=== PATIENT | female | born 1935 | race Caucasian/White ===

== ENCOUNTER 2016-11-06 11:12 | Outpatient (CLI) | payer MEDICARE, OTHER ==
[2015-12-24 14:19] VITALS: BP 121/71
--- NOTE | 2016-11-06 19:48 | Diagnostic Imaging Report ---
[facility] [address] [facility] [address] [place], [place]. [address] Report Submission Date: Nov 06, 2016 2:33:37 PM CHURCH ADMINISTRATOR Patient Study Name: ALEXANDRO MONROY Date: Nov 06, 2016 11:32:49 AM CHURCH ADMINISTRATOR Modality Type: CR Gender: F Description: CHEST : 37 Institution: [facility] Physician: ANDRES FITZGERALD Chest - two views Clinical history: Cough. Difficulty breathing. Nausea. Fever. Findings: Examination of the chest in PA and lateral views with comparison to examination of 12/24/2015 demonstrates chronic changes in the lungs with fibrotic changes in the apices and bilateral apical fibrocystic changes. There is blunting of the right costophrenic angle and mild blunting left costophrenic angle. Overall aeration of the lungs is improved since the prior examination. The cardiac silhouette is prominent and the aorta is atherosclerotic. Impression: 1. Chronic changes in the lungs with areas of fibrosis and fibrocystic changes in the apices. 2. Cardiomegaly and aortic atherosclerosis. Electronically signed on Nov 06, 2016 2:33:37 PM CHURCH ADMINISTRATOR by: Remington SALDAÑA
== END 2016-11-06 11:13 ==
LOC: RAD 11:12
PROVIDERS: ATTEND Family Medicine
DX: R50.9 Fever, unspecified (principal)
CPT/HCPCS: 71020

== ENCOUNTER 2016-11-09 12:45 | Inpatient (IN) | payer MEDICARE, OTHER ==
[2016-11-09] MEDS ORDERED: IPRATROPIUM/ALBUTEROL SULFATE 3 ML AMPUL.NEB NEB ONE ×2 (13:04)
[2016-11-09] MEDS ORDERED: 0.9 % SODIUM CHLORIDE 1,000 ML IV SCH (13:30)
--- NOTE | 2016-11-09 13:39 | ED Physician Documentation ---
General Adult - HISTORIAN Historian: patient, child (daughter) - HPI Stated Complaint: cough, soa Chief Complaint: General Adult Additional Information: Cough since 11/02/16. Saw Dr. Torres on 11/06, and syas no pneumonia noted on CXR. Usually gets pneumonia every year at about this time. Has felt hot/cold. Some sweats. More tired and SOB today. Says [place] helped her breathing. Uses albuterol, brevana and budesoine nebs at home. Placed on 2 L per NC in ER. Does not use O2 at home. - ROS CONST: fever (feverish), sweating CVS/RESP: shortness of breath - PAST HX Past History: other (lung scarring 2/2 industrial dust exposure?) Surgeries/Procedures: other Allergies/Adverse Reactions: Allergies Allergy/AdvReac Type Severity Reaction Status Date / Time No Known Drug Allergies Allergy Verified 07/10/15 14:11 sulfamethoxazole AdvReac Nausea/Vomi Verified 11/09/16 13:11 [From Bactrim] ting trimethoprim [From Bactrim] AdvReac Nausea/Vomi Verified 11/09/16 13:11 ting Home Medications: Ambulatory Orders Medication Instructions Recorded Loratadine [Claritin] 10 mg PO D 05/24/15 Multivitamin [Tab-A-Dana] 1 each PO DAILY 05/24/15 Polyethylene Glycol 3350 [Miralax] 17 gm PO 1100 05/24/15 Albuterol Sulfate [Ventolin HFN] 2.5 mg NEB Q4 PRN #0 ampul.neb 05/29/15 Arformoterol Tartrate [Brovana] 15 mcg NEB DAILY ampul.neb 05/29/15 Budesonide [Pulmicort] 0.5 mg NEB BID ampul.neb 05/29/15 Acetaminophen [Tylenol Extra 650 mg PO Q4 PRN 12/20/15 Strength] - SOCIAL HX Smoking History: non-smoker - FAMILY HX Family History: No - VITAL SIGNS Vital Signs: Vital Signs Temp Pulse Resp BP Pulse Ox 98.3 F 108 H 26 H 125/76 88 L 11/09/16 13:14 11/09/16 13:14 11/09/16 13:14 11/09/16 13:14 11/09/16 13:14 - REVIEWED ASSESSMENTS Nursing Assessment Reviewed: Yes Vitals Reviewed: Yes Progress - Progress Progress: 2 views the chest Clinical history: Productive cough and difficulty breathing. Findings: Comparisons made to prior study. There has been development of infiltrate in the right midlung and left midlung. There is unchanged blunting of the bilateral costophrenic angles. There are unchanged chronic fibrocystic change bilaterally, greatest in the right lung apex. No pleural effusion or pneumothorax. Impression: Development of superimposed infiltrates in the right midlung and left midlung Electronically signed on Nov 09, 2016 2:45:51 PM GRIND OPERATOR by: [place] [id number], spoke with Dr. Anderson, will admit for IV antibiotics for pneumonia and UTI. ED Results Lab/Radiology - Orders Orders: ED Orders Category Date Time Status Document Bowel Movement Q8H Care 11/09/16 13:[address] Saline Lock/IV Now Care 11/09/16 13:05 Inactive CBC/PLATELET/DIFF Routine Lab 11/09/16 Ordered CMP Routine Lab 11/09/16 Ordered UA [URINALYSIS] Routine Lab 11/09/16 Ordered 0.9 % Sodium Chloride [Normal Saline] 1,000 ml Med 11/09/16 13:30 Discontinued IV Q10H Ipratropium/Albuterol Sulfate [Duoneb] Med 11/09/16 13:04 Discontinued 3 ml NEB .STK-MED ONE Ipratropium/Albuterol Sulfate [Duoneb] Med 11/09/16 13:04 Discontinued 3 ml NEB NOW ONE Oxygen Daily Oxygen 11/09/16 13:15 Ordered General Adult Physical Exam - PHYSICAL EXAM GENERAL APPEARANCE: appears tired. EENT: eye inspection normal, ENT inspection normal, pharynx normal NECK: normal inspection, supple RESPIRATORY: breath sounds normal (but decreased throughout) CVS: reg rate & rhythm, heart sounds normal, no murmur ABDOMEN: soft, normal bowel sounds, no distension RECTAL: deferred BACK: normal inspection, no CVA tenderness SKIN: warm/dry, normal color EXTREMITIES: no evidence of injury NEURO: CN's nml as tested, motor nml, sensation nml, cognition normal Discharge Clincal Impression: Pneumonia Qualifiers: Pneumonia type: due to unspecified organism Laterality: bilateral Lung location : lower lobe of lung Qualified Code(s): J18.9 - Pneumonia, unspecified organism Urinary tract infection Qualifiers: Urinary tract infection type: acute cystitis Hematuria presence: with hematuria Qualified Code(s): N30.01 - Acute cystitis with hematuria Home Medications: Ambulatory Orders Loratadine [Claritin] 10 mg PO D 05/24/15 Multivitamin [Tab-A-Dana] 1 each PO DAILY 05/24/15 Polyethylene Glycol 3350 [Miralax] 17 gm PO 1100 05/24/15 Albuterol Sulfate [Ventolin HFN] 2.5 mg NEB Q4 PRN #0 ampul.neb 05/29/15 Arformoterol Tartrate [Brovana] 15 mcg NEB DAILY ampul.neb 05/29/15 Budesonide [Pulmicort] 0.5 mg NEB BID ampul.neb 05/29/15 Acetaminophen [Tylenol Extra Strength] 650 mg PO Q4 PRN 12/20/15 Condition: Fair Disposition: ADMITTED INPATIENT Decision to Admit: NO Decision Time: 14:50
[2016-11-09 13:58] LABS: MEAN CORPUSCULAR HEMOGLOBIN 30.1 pg (28.0-34.0)
[2016-11-09 14:14] LABS: eGFR (African) > 60; eGFR (Non-African) > 60
[2016-11-09] MEDS ORDERED: 0.9 % SODIUM CHLORIDE 1,000 ML IV ONE ×2 (14:24)
[2016-11-09 15:28] LABS: MONOCYTES % 2 % (0-11); SEGMENTED NEUTROPHILS % 84 % (39-79)
[2016-11-09] MEDS ORDERED: LEVOFLOXACIN 500MG/D5W 100ML 100 ML IV ONE (15:33)
[2016-11-09] MEDS: LEVOFLOXACIN 500MG/D5W 100ML 500 MG in PREMIX BAG 1 BAG IV SCH (15:38)
[2016-11-09 15:47] LABS: APPEARANCE,URINE CLEAR (CLEAR); COLOR,URINE YELLOW (YELLOW); OCCULT BLOOD,URINE 1+ (NEGATIVE); UROBILINOGEN URINE 0.2 Eu (0.2-1.0)
--- NOTE | 2016-11-09 15:49 | History and Physical Report ---
History of Present Illnes - History of Present Illness Reason for Visit: dyspnea History of Present Illness: 81yo white female who has a history of pulmonary fibrosis with recurrent pneumonia. Patient has been doing well until about 5 days ago she started to develop some cough that was dry and mild increasing SOB. patient was seen by Dr Torres 3 days ago and had chest x-ray which was felt to be stable. Over the last 24 hours she has developed a fever to 102, increasing SOB, productive cough of some yellow green phlegm with not blood. Patient was seen in the ED and felt to have a developing pneumonia and was admitted for further evaluation and treatment. - Past Medical History Cardiac: HTN Pulmonary: COPD, Pulmonary embolus (finished anticoagualtion therapy), Other ( pulmonary fibrosis/ interstitial lung disease) Gastrointestinal: Other (esophageal achalasia with dyphagia) Psych: Anxiety Musculoskeletal: Osteoarthritis - Past Surgical History Past Surgical History: Tonsillectomy - Past Family History Mother Family History: Father Family History: Brother 1 Family History: Cancer (colon), (76yo ) Brother 2 Family History: None, Other (83yo) Sister 1 Family History: Cancer (unknown), Sister 2 Family History: Cancer (unknown), Sister 3 Family History: (accident) - Past Social History Smoke: No Alcohol: None Drugs: None Lives: Alone, Other (has recently been .) - Health Maintenance Health Maintenance: Influenza Vaccine, Pneumococcal Vaccine. denies: Cholesterol, Mammogram Pneumonia Vaccine: Yes Resuscitation Status: Full code - Unable to Obtain History Unable to Obtain: No Review of Systems - Review of Systems Constitutional: Fever, Chills. negative: Sweats, Weakness Eyes: other (glucoma). negative: pain, vision change, conjunctivae inflammation ENT: negative: Ear Pain, Ear Discharge, Nose Pain, Nose Discharge, Nose Congestion, Mouth Pain, Mouth Swelling, Throat Pain, Throat Swelling Respiratory: Cough, Shortness of Breath, SOB with Excertion, Pleuritic Pain ( left), Sputum, Wheezing. negative: Dry, Hemoptysis Cardiovascular: Chest Pain (left). negative: Palpitations, Orthopnea, Paroxysmal Noc. Dyspnea, Edema, Light Headedness Gastrointestinal: negative: Nausea, Vomiting, Abdominal Pain, Diarrhea, Constipation, Melena, Hematochezia Genitourinary: negative: Dysuria, Frequency, Incontinence, Hematuria Musculoskeletal: Back Pain Skin: negative: Rash, Lesions Neurological: Weakness (genralized). negative: Numbness, Incoordination, Change in Speech - Medications/Allergies Allergies/Adverse Reactions: Allergies Allergy/AdvReac Type Severity Reaction Status Date / Time No Known Drug Allergies Allergy Verified 07/10/15 14:11 sulfamethoxazole AdvReac Nausea/Vomi Verified 11/09/16 13:11 [From Bactrim] ting trimethoprim [From Bactrim] AdvReac Nausea/Vomi Verified 11/09/16 13:11 ting Current Inpatient Medications: Current Inpatient Medications Acetaminophen (Tylenol Extra Strength) 650 mg PO Q4 PRN PRN Reason: PAIN Albuterol/Ipratropium (Duoneb) 3 ml NEB Q6 [facility] Enoxaparin Sodium (Lovenox) 30 mg SQ QD [facility] Stop: 11/22/16 16:01 Azithromycin 500 mg/ Sodium (Chloride) 250 mls @ 125 mls/hr IV Q24H [facility] Stop: 11/19/16 15:59 Levofloxacin/Dextrose 500 mg/ (PREMIX BAG) 100 mls @ 100 mls/hr IV DAILY [facility] Last Admin: 11/09/16 15:38 Dose: 100 mls/hr Loratadine (Claritin) 10 mg PO D [facility] Multivitamins (Tab-A-Dana) 1 each PO DAILY [facility] Ondansetron HCl (Zofran Odt) 4 mg PO Q6 PRN PRN Reason: Nausea / Vomiting Paroxetine HCl (Paxil) 10 mg PO DAILY [facility] Polyethylene Glycol (Miralax) 17 gm PO 1100 [facility] Sucralfate (Carafate) 1 gm PO QID [facility] Exam - Exam Vital Signs: Vital Signs (72 hours) 11/09/16 15:40 Temperature 98.3 F Pulse Rate [ 106 H Pulse ox] Respiratory 24 Rate Blood Pressure 131/79 [Right Arm] O2 Sat by Pulse 94 Oximetry General: Alert, Oriented to Person, Oriented to Place, Oriented to Time, Cooperative, Mild distress HEENT: Atraumatic, PERRLA, EOMI, Mouth Mucous membr. moist/[place], Nose Mucous membr. moist/[place], Edentulous, Hearing Grossly Normal Neck: Normal Range of Motion Carotids: WNL Thyroid: WNL Lungs: Normal air movement, Speaks full Sentences, Wheezes, Rales, Rhonchi (R>L) . No: Prolonged Expiration Cardiovascular: Regular rate, Normal S1, Normal S2, No murmurs. No: Gallops, Rubs, Murmur, Irregularly Irregular Abdomen: Normal bowel sounds, Soft, No tenderness, No hepatospenomegaly, No masses. No: Distended Integumentary: Normal, [place], Warm, Dry Extremities: No clubbing, No cyanosis, No edema, Normal pulses, No tenderness/ swelling Neurological: Normal gait, Normal speech, Strength Equal Bilat, Normal tone, Sensation intact, Cranial nerves 3-12 NL, Reflexes 2+ Psych/Mental Status: Mental status NL, Mood NL, Appropriate Affect, Intact Judgment Assessment/Plan - Assessment/Plan (1) Pneumonia Status: Acute Current Visit: Yes Qualifiers: Pneumonia type: due to unspecified organism Laterality: bilateral Lung location: lower lobe of lung Qualified Code(s): J18.9 - Pneumonia, unspecified organism Assessment: Blood cultures obtained, will start patient on Levaquin and Azithromycin. Continue with supplemental oxygenation. HFN treatments. (2) Dysphagia Status: Acute Current Visit: Yes Assessment: related to esophageal achalasia. (3) Pulmonary fibrosis Status: Chronic Current Visit: Yes Assessment: Continue with present pulmonary medications (4) Dementia Status: Chronic Current Visit: Yes Qualifiers: Alzheimer's disease onset: late-onset Dementia behavioral disturbance: without behavioral disturbance Assessment: stable, will continue with home meds (5) Constipation Status: Chronic Current Visit: Yes Qualifiers: Constipation type: slow transit constipation Qualified Code(s): K59.01 - Slow transit constipation Assessment: monitor BMs, will continue home meds VTE Assessment - RISK FACTOR SCORE VTE RISK FACTOR SCORES: AGE OVER 60 YEARS, ACUTE INFECTION OTHER THEN SEPSIS, ANTICIPATED BED CONFINEMENT OR IMMOBILIZATION > 24 HOURS - RISK VTE HIGH RISK: SCORE OF 3-4 (RISK PROXIMAL DVT 4-8%) PROPHYLAXIS NEEDED
[2016-11-09] MEDS ORDERED: SALINE FLUSH 10 ML DISP.SYRIN IVF ONE ×2 (16:47→17:47)
--- NOTE | 2016-11-09 17:01 | Diagnostic Imaging Report ---
~ [facility] [address] [facility] [address] [place], [place]. [address] ~ ~ ~ ~ Report Submission Date: Nov 09, 2016 2:45:51 PM PHLEBOTOMY SUPERVISOR Patient ~ Study Name: ALEXANDRO MONROY ~ Date: Nov 09, 2016 2:26:43 PM PHLEBOTOMY SUPERVISOR ~ Modality Type: CR Gender: F ~ Description: CHEST : 37 ~ Institution: [facility] Physician: MIGUEL BERNARD ~ ~ ~ ~ 2 views the chest Clinical history: Productive cough and difficulty breathing. Findings: Comparisons made to prior study. There has been development of infiltrate in the right midlung and left midlung. There is unchanged blunting of the bilateral costophrenic angles. There are unchanged chronic fibrocystic change bilaterally, greatest in the right lung apex. No pleural effusion or pneumothorax. Impression: Development of superimposed infiltrates in the right midlung and left midlung ~ Electronically signed on Nov 09, 2016 2:45:51 PM PHLEBOTOMY SUPERVISOR by: [place] SALDAÑA
[2016-11-09] MEDS ORDERED: 0.9 % SODIUM CHLORIDE 250 ML IV ONE (17:18)
[2016-11-09] MEDS ORDERED: AZITHROMYCIN 500 MG VIAL IV ONE (17:18)
[2016-11-09] MEDS: ENOXAPARIN SODIUM 30 MG/0.3 ML DISP.SYRIN SQ SCH (17:19)
[2016-11-09] MEDS: SUCRALFATE 1 GM TABLET PO SCH ×2 (17:24→20:34)
[2016-11-09] MEDS: AZITHROMYCIN 500 MG in 0.9 % SODIUM CHLORIDE 250 ML IV SCH (17:37)
[2016-11-09 18:35] VITALS: BMI 15.3
[2016-11-09] MEDS: ONDANSETRON HCL 4 MG TAB.RAPDIS PO PRN (19:12)
[2016-11-09] MEDS ORDERED: ACETAMINOPHEN 325 MG TABLET ONE (19:41)
[2016-11-09] MEDS: ACETAMINOPHEN 500 MG TABLET PO PRN (19:42)
[2016-11-09] MEDS ORDERED: BUDESONIDE 0.5MG/2ML AMPUL.NEB NEB ONE (20:12)
[2016-11-09] MEDS: MEMANTINE HCL 10 MG TABLET PO SCH (20:34)
[2016-11-09] MEDS: PATIENT OWN MED 1 EACH EACH OP SCH (20:35)
[2016-11-09] MEDS: IPRATROPIUM/ALBUTEROL SULFATE 3 ML AMPUL.NEB NEB SCH (20:54)
[2016-11-09] MEDS: ARFORMOTEROL TARTRATE 15 MCG/2 ML AMPUL.NEB IH SCH (20:54)
[2016-11-09] MEDS ORDERED: BUDESONIDE 0.5 MG NEB SCH (21:00)
[2016-11-10] MEDS: IPRATROPIUM/ALBUTEROL SULFATE 3 ML AMPUL.NEB NEB SCH ×4 (04:57→18:11)
[2016-11-10] MEDS ORDERED: AZITHROMYCIN 500 MG VIAL IV ONE (05:07)
[2016-11-10] MEDS ORDERED: 0.9 % SODIUM CHLORIDE 250 ML IV ONE ×2 (05:07→16:22)
[2016-11-10] MEDS ORDERED: SALINE FLUSH 10 ML DISP.SYRIN IVF ONE ×2 (05:09→19:37)
[2016-11-10] MEDS ORDERED: ACETAMINOPHEN 325 MG TABLET ONE ×2 (06:23→22:53)
[2016-11-10] MEDS: ACETAMINOPHEN 500 MG TABLET PO PRN ×3 (06:24→22:54)
[2016-11-10] MEDS: PANTOPRAZOLE SODIUM 40 MG TABLET PO SCH (06:24)
[2016-11-10 07:25] LABS: BASOPHILS % 0.3 (0.0-1.5); EOSINOPHILS % 0.1 % (0.0-6.8); LYMPHOCYTES # 1.7 # k/uL (0.6-4.0); MEAN CORPUSCULAR HEMOGLOBIN 29.7 pg (28.0-34.0); MONOCYTES # 0.4 # k/uL (0.0-0.9); MONOCYTES % 2.9 % (0.0-11.0); NEUTROPHILS # 11.4 # k/uL (1.4-7.7)
[2016-11-10 07:41] LABS: eGFR (African) > 60; eGFR (Non-African) > 60
[2016-11-10] MEDS ORDERED: LEVOFLOXACIN 500MG/D5W 100ML 100 ML IV ONE (08:33)
[2016-11-10] MEDS: MULTIVITAMIN 1 EACH TABLET PO SCH (08:37)
[2016-11-10] MEDS: LORATADINE 10 MG TABLET PO SCH (08:37)
[2016-11-10] MEDS: PARoxetine HCL 10 MG TABLET PO SCH (08:37)
[2016-11-10] MEDS: LEVOFLOXACIN 500MG/D5W 100ML 500 MG in PREMIX BAG 1 BAG IV SCH (08:37)
[2016-11-10] MEDS: SUCRALFATE 1 GM TABLET PO SCH ×4 (08:37→20:50)
[2016-11-10] MEDS: LATANOPROST 0.005% OPTH DROP OP SCH (08:39)
[2016-11-10] MEDS: BUDESONIDE 0.5MG/2ML AMPUL.NEB NEB SCH ×2 (08:56→21:16)
[2016-11-10] MEDS: ARFORMOTEROL TARTRATE 15 MCG/2 ML AMPUL.NEB IH SCH ×2 (08:58→21:17)
[2016-11-10] MEDS ORDERED: POLYETHYLENE GLYCOL 3350 17 GM POWD.PACK PO SCH (11:00)
--- NOTE | 2016-11-10 13:08 | Inpatient Progress Note ---
Subjective - Required Recertification Statement I anticipate X number of days because-include discharge plan: 2 - Review of Systems Events since last encounter: Patient states she does seem to be breathing some better today. Patient is still getting short of breath with minimal exertion. Cough has improved. Patient has been running a low-grade fever. Patient does feel that the high flow nebulization treatments are helping her. General: Chills, Fatigue HEENT: Head Aches Pulmonary: Dyspnea. Denies: Cough, Pleuritic Chest Pain ( YAG granulomatous) Objective - Exam Vitals and I&O: Vital Signs Temp 99.9 F H 11/10/16 09:32 Pulse 109 H 11/10/16 09:32 Resp 18 11/10/16 09:32 BP 107/57 11/10/16 09:32 Pulse Ox 95 11/10/16 09:32 Intake & Output 11/09/16 11/10/16 11/10/16 23:59 11:59 23:59 Intake Total 0 240 120 Balance 0 240 120 Weight 41.73 kg Intake: Oral 0 240 120 Other: Voiding Method Toilet # Voids 1 3 General: Alert, Oriented to Person, Oriented to Place, Oriented to Time Neck: Supple, No JVD Lungs: Speaks full Sentences, Respiratory Distress (mild), Wheezes, Rhonchi ( course bilateral) Cardiovascular: Regular rate, Normal S1, Normal S2 Abdomen: Normal bowel sounds, Soft, No tenderness Extremities: No clubbing, No cyanosis, No edema Skin: Normal, [place], Warm, Dry Psych/Mental Status: Mental status NL, Mood NL, Appropriate Affect - Results Results: Laboratory Results WBC 13.70 K/ul (4.00-12.00) H 11/10/16 07:05 RBC 3.92 M/ul (3.90-5.20) 11/10/16 07:05 Hgb 11.7 g/dL (12.0-16.0) L 11/10/16 07:05 Hct 37.3 % (34.5-46.5) 11/10/16 07:05 MCV 95.0 fl (80.0-100.0) 11/10/16 07:05 MCH 29.7 pg (28.0-34.0) 11/10/16 07:05 MCHC 31.3 g/dL (30.0-36.0) 11/10/16 07:05 RDW 13.8 % (11.3-14.3) 11/10/16 07:05 Plt Count 280 K/mm3 (130-400) 11/10/16 07:05 Neut % (Auto) 83.3 % (39.0-79.0) H 11/10/16 07:05 Lymph % (Auto) 12.3 % (16.0-50.0) L 11/10/16 07:05 [place] % (Auto) 2.9 % (0.0-11.0) 11/10/16 07:05 Eos % (Auto) 0.1 % (0.0-6.8) 11/10/16 07:05 Baso % (Auto) 0.3 (0.0-1.5) 11/10/16 07:05 Neut # 11.4 # k/uL (1.4-7.7) H 11/10/16 07:05 Lymph # 1.7 # k/uL (0.6-4.0) 11/10/16 07:05 [place] # 0.4 # k/uL (0.0-0.9) 11/10/16 07:05 Eos # 0.0 # k/uL (0.0-0.6) 11/10/16 07:05 Baso # 0.0 # k/uL (0.0-0.5) 11/10/16 07:05 Seg Neutrophils % 84 % (39-79) H 11/09/16 13:43 Band Neutrophils % 8 % (0-12) 11/09/16 13:43 Lymphocytes % 6 % (16-50) L 11/09/16 13:43 Reactive Lymphs % 1.1 % (0.0-5.0) 11/10/16 07:05 Monocytes % 2 % (0-11) 11/09/16 13:43 Reactive Lymphs # 0.2 # k/uL (0.0-0.8) 11/10/16 07:05 Plt Morphology Comment Normal (NORMAL) 11/09/16 13:43 RBC Morph Comment Normal (NORMAL) 11/09/16 13:43 Sodium 136 mmol/L (136-145) 11/10/16 07:05 Potassium 3.9 mmol/L (3.5-5.0) 11/10/16 07:05 Chloride 107 mmol/L (98-110) 11/10/16 07:05 Carbon Dioxide 32 mmol/L (20-32) 11/10/16 07:05 BUN 9 mg/dL (10-26) L 11/10/16 07:05 Creatinine 0.4 mg/dL (0.4-1.5) 11/10/16 07:05 Estimated Creat Clear 86 11/10/16 07:05 Est GFR ( Amer) > 60 (60-) 11/10/16 07:05 Est GFR (Non-Af Amer) > 60 (60-) 11/10/16 07:05 Glucose 119 mg/dL (70-99) H 11/10/16 07:05 Calcium 9.7 mg/dL (8.5-10.5) 11/10/16 07:05 Total Bilirubin 0.3 mg/dL (0.2-1.2) 11/09/16 13:43 AST 30 U/L (0-41) 11/09/16 13:43 ALT 29 U/L (0-45) 11/09/16 13:43 Alkaline Phosphatase 133 U/L (46-116) H 11/09/16 13:43 Total Protein 7.6 g/dL (6.0-8.5) 11/09/16 13:43 Albumin 3.7 g/dL (3.0-5.5) 11/09/16 13:43 Urine Color Yellow (YELLOW) 11/09/16 13:24 Urine Appearance Clear (CLEAR) 11/09/16 13:24 Urine pH 7.0 (5.0 - 8.0) 11/09/16 13:24 Ur Specific [place] 1.010 (1.010-1.030) 11/09/16 13:24 Urine Protein 1+ mg/dL (NEGATIVE) H 11/09/16 13:24 Urine Ketones Negative mg/dL (NEGATIVE) 11/09/16 13:24 Urine Occult Blood 1+ (NEGATIVE) H 11/09/16 13:24 Urine Nitrite Positive (NEGATIVE) H 11/09/16 13:24 Urine Bilirubin Negative (NEGATIVE) 11/09/16 13:24 Urine Urobilinogen 0.2 Eu (0.2-1.0) 11/09/16 13:24 Ur Leukocyte Esterase Negative (NEGATIVE) 11/09/16 13:24 Urine Glucose 2+ mg/dL (NEGATIVE) H 11/09/16 13:24 Influenza A (Rapid) Negative (NEGATIVE) 11/09/16 13:24 Influenza B (Rapid) Negative (NEGATIVE) 11/09/16 13:24 Assessment/Plan - Assessment/Plan (1) Pneumonia Status: Acute Current Visit: Yes Qualifiers: Pneumonia type: due to unspecified organism Laterality: bilateral Lung location: lower lobe of lung Qualified Code(s): J18.9 - Pneumonia, unspecified organism Assessment: Cultures are pending. We'll continue with present medications and treatment. (2) Dysphagia Status: Acute Current Visit: Yes (3) Pulmonary fibrosis Status: Chronic Current Visit: Yes
[2016-11-10] MEDS: ENOXAPARIN SODIUM 30 MG/0.3 ML DISP.SYRIN SQ SCH (16:44)
[2016-11-10] MEDS: AZITHROMYCIN 500 MG in 0.9 % SODIUM CHLORIDE 250 ML IV SCH (16:44)
[2016-11-10] MEDS: ONDANSETRON HCL 4 MG TAB.RAPDIS PO PRN (17:37)
[2016-11-10] MEDS: MEMANTINE HCL 10 MG TABLET PO SCH (20:49)
[2016-11-10] MEDS: PATIENT OWN MED 1 EACH EACH OP SCH (20:51)
[2016-11-11] MEDS: IPRATROPIUM/ALBUTEROL SULFATE 3 ML AMPUL.NEB NEB SCH ×2 (01:49→06:05)
[2016-11-11] MEDS: PANTOPRAZOLE SODIUM 40 MG TABLET PO SCH (06:21)
--- NOTE | 2016-11-11 08:42 | Diagnostic Imaging Report ---
[facility] [address] [facility].[address] [address] Report Submission Date: Nov 11, 2016 7:37:59 AM BULLDOZER/LOADER/COMPACTOR/SCRAPER Patient Study Name: ALEXANDRO MONROY Date: Nov 11, 2016 7:12:57 AM BULLDOZER/LOADER/COMPACTOR/SCRAPER Modality Type: CR Gender: F Description: CHEST : 37 Institution: [facility] Physician: RENÉ ESPINOZA Chest, PA and lateral History: Cough, weakness, shortness of breath Findings: There is no pneumothorax or pleural effusion. Significant left apical pleural thickening is present. Emphysematous changes are noted in the right lung apex. Extensive diffuse bilateral lung infiltrates are noted. Pleural thickening or a loculated of fluid effusion is noted in the right upper lobe. The heart is enlarged. Since 09 November 2016, lung infiltrates have increased. Impression: 1. Increasing lung infiltrates. 2. Extensive chronic changes. Electronically signed on Nov 11, 2016 7:37:59 AM BULLDOZER/LOADER/COMPACTOR/SCRAPER by: Magnus SALDAÑA
[2016-11-11] MEDS: BUDESONIDE 0.5MG/2ML AMPUL.NEB NEB SCH (08:45)
[2016-11-11] MEDS: ARFORMOTEROL TARTRATE 15 MCG/2 ML AMPUL.NEB IH SCH (08:45)
[2016-11-11 09:17] LABS: MEAN CORPUSCULAR HEMOGLOBIN 30.3 pg (28.0-34.0)
--- NOTE | 2016-11-11 09:18 | Discharge Summary ---
Discharge Summary - Discharge Sumary History of Present Illness: 81yo white female who has a history of pulmonary fibrosis with recurrent pneumonia. Patient has been doing well until about 5 days ago she started to develop some cough that was dry and mild increasing SOB. patient was seen by Dr Torres 3 days ago and had chest x-ray which was felt to be stable. Over the last 24 hours she has developed a fever to 102, increasing SOB, productive cough of some yellow green phlegm with not blood. Patient was seen in the ED and felt to have a developing pneumonia and was admitted for further evaluation and treatment. Home Medications: Ambulatory Orders Medication Instructions Recorded Loratadine [Claritin] 10 mg PO D 05/24/15 Multivitamin [Tab-A-Dana] 1 each PO DAILY 05/24/15 Polyethylene Glycol 3350 [Miralax] 17 gm PO 1100 05/24/15 Albuterol Sulfate [Ventolin HFN] 2.5 mg NEB Q4 PRN #0 ampul.neb 05/29/15 Arformoterol Tartrate [Brovana] 15 mcg NEB DAILY ampul.neb 05/29/15 Budesonide [Pulmicort] 0.5 mg NEB BID ampul.neb 05/29/15 Acetaminophen [Tylenol Extra 650 mg PO Q4 PRN 12/20/15 Strength] Ipratropium/Albuterol Sulfate 3 ml NEB Q6 ampul.neb 11/11/16 [Duoneb] Allergies/Adverse Reactions: Allergies Allergy/AdvReac Type Severity Reaction Status Date / Time No Known Drug Allergies Allergy Verified 07/10/15 14:11 sulfamethoxazole AdvReac Nausea/Vomi Verified 11/09/16 13:11 [From Bactrim] ting trimethoprim [From Bactrim] AdvReac Nausea/Vomi Verified 11/09/16 13:11 ting Discharge Summary: patient was started on IV therapy with Levaquin and azithromycin. Patient was also started on high flow nebulization treatments with DuoNeb. Patient was maintained on oxygen support to maintain her SaO2 greater than 90%. initially patient did show some signs of improvement. On the day of transfer. Patient stated that her breathing was getting worse. Patient was requiring more oxygen therapy. Patient requested to be transferred to [facility]. Patient was transferred Stable but guarded condition. - Final Diagnosis (1) Pneumonia Problems: patient's respiratory status appeared to be getting worse and was transferred to [facility]. (2) Dysphagia Problems: stable (3) Pulmonary fibrosis Problems: stable
[2016-11-11 09:42] LABS: SEGMENTED NEUTROPHILS % 95 % (39-79)
[2016-11-11 10:25] VITALS: BP 131/71
[2016-11-11] MEDS: SUCRALFATE 1 GM TABLET PO SCH (10:26)
[2016-11-11] MEDS: LORATADINE 10 MG TABLET PO SCH (10:27)
[2016-11-11] MEDS: PARoxetine HCL 10 MG TABLET PO SCH (10:28)
[2016-11-11] MEDS: MULTIVITAMIN 1 EACH TABLET PO SCH (10:28)
[2016-11-11] MEDS: LATANOPROST 0.005% OPTH DROP OP SCH (10:43)
[2016-11-11] MEDS ORDERED: LEVOFLOXACIN 500MG/D5W 100ML 100 ML IV ONE (10:54)
[2016-11-11] MEDS: LEVOFLOXACIN 500MG/D5W 100ML 500 MG in PREMIX BAG 1 BAG IV SCH (10:55)
== END 2016-11-11 11:10 | disposition short-term general hospital (02) | DRG 196 ==
LOC: ED 12:45 → SOUTH 15:32
PROVIDERS: ADMIT Family Medicine; ATTEND Family Medicine
DX: J84.10 Pulmonary fibrosis, unspecified (principal); J18.9 Pneumonia, unspecified organism; R13.10 Dysphagia, unspecified; F03.90 Unspecified dementia, unspecified severity, without behavioral disturbance, psychotic disturbance, mood disturbance, and anxiety; K59.00 Constipation, unspecified
CPT/HCPCS: 36415; 71020; 80048; 80053; 81002; 85025; 87040; 87186; 87400; 94640; 94760; 99283; 99284; A9270; J0456; J1650; J1956; J7030; J7050; J7626; 99222; 99232; 99238; S1016

== ENCOUNTER 2016-11-20 15:00 | Inpatient (IN) | payer MEDICARE, OTHER ==
[2016-11-20 17:04] VITALS: BMI 14.4
[2016-11-20] MEDS ORDERED: ALBUTEROL SULFATE 2.5 MG/3 ML AMPUL.NEB NEB PRN (17:53)
[2016-11-20] MEDS ORDERED: IPRATROPIUM/ALBUTEROL SULFATE 3 ML AMPUL.NEB NEB PRN (17:53)
[2016-11-20] MEDS ORDERED: ENOXAPARIN SODIUM 30 MG/0.3 ML DISP.SYRIN SQ SCH (18:00)
[2016-11-20] MEDS ORDERED: SODIUM CHLORIDE NASAL SPRAY NS PRN (18:16)
[2016-11-20] MEDS: ENOXAPARIN SODIUM 30 MG/0.3 ML DISP.SYRIN SQ SCH (18:19)
--- NOTE | 2016-11-20 18:20 | History and Physical Report ---
History of Present Illnes - History of Present Illness Reason for Visit: gait disturbance History of Present Illness: 81-yo white female who was recently admitted to the hospital with pneumonia. Patient breathing status continued to deteriorate. Patient was subsequently transferred to [facility]. At [facility] patient was admitted to the ICU. Patient was found to have a pneumonia along with congestive heart failure. Patient was treated with IV Lasix and IV antibiotic therapy. Patient was given high flow nebulization treatments. 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 Patient was treated with IV antibiotic therapy and high flow nebulization treatments. Patient was also given IV Lasix for her congestive heart failure.. Patient became weak and her ability to ambulate was compromised. It was felt that the patient would benefit from further skilled services was subsequently admitted to this institution for further physical therapy, occupational therapy. Discharge patient was advised to consider possible hospice care. Patient does not want to do that at this time.d At the time of discharge patient was advise to consider Hospice care but patient did not want to pursue that at this time. 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 ) Gastrointestinal: Other (esophageal achalasia with dyphagia) Psych: Anxiety Musculoskeletal: Osteoarthritis - Past Surgical History Past Surgical History: Tonsillectomy - Past Family History Mother Family History: CAD, (36 yo) Father Family History: (90yo alzheimier's dementia) - Past Social History Smoke: No Alcohol: None Drugs: None Lives: With Family (with son), Other (has recently been .) - Health Maintenance Health Maintenance: Influenza Vaccine, Pneumococcal Vaccine. denies: Cholesterol, Mammogram Influenza Vaccine: Current for this Influenza Season Pneumonia Vaccine: Yes Resuscitation Status: Resusciation Status Resuscitation Status Do Not Resuscitate - Unable to Obtain History Unable to Obtain: No Review of Systems - Review of Systems Constitutional: negative: Fever, Chills, Sweats Eyes: negative: pain, vision change ENT: negative: Ear Pain, Ear Discharge, Nose Pain, Nose Discharge, Nose Congestion, Mouth Pain, Mouth Swelling, Throat Pain, Throat Swelling Respiratory: Cough, SOB with Excertion Cardiovascular: negative: Chest Pain, Palpitations, Edema Gastrointestinal: Nausea, Constipation. negative: Vomiting, Abdominal Pain, Diarrhea, Melena, Hematochezia Genitourinary: negative: Dysuria, Frequency, Incontinence, Hematuria Musculoskeletal: negative: Back Pain Skin: negative: Rash, Lesions Neurological: negative: Weakness, Numbness, Incoordination, Change in Speech - Medications/Allergies Allergies/Adverse Reactions: Allergies Allergy/AdvReac Type Severity Reaction Status Date / Time No Known Drug Allergies Allergy Verified 07/10/15 14:11 sulfamethoxazole AdvReac Nausea/Vomi Verified 11/09/16 13:11 [From Bactrim] ting trimethoprim [From Bactrim] AdvReac Nausea/Vomi Verified 11/09/16 13:11 ting Current Inpatient Medications: Current Inpatient Medications Acetaminophen (Tylenol Extra Strength) 650 mg PO Q4 PRN PRN Reason: PAIN Albuterol Sulfate (Ventolin) 2.5 mg NEB Q4 PRN PRN Reason: Wheezing Albuterol/Ipratropium (Duoneb) 3 ml NEB Q6 PRN PRN Reason: dyspnea Arformoterol Tartrate (Brovana) 15 mcg IH BID [facility] Budesonide (Pulmicort) 0.5 mg NEB BID [facility] Enoxaparin Sodium (Lovenox) 30 mg SQ QD [facility] Stop: 12/03/16 18:01 Enoxaparin Sodium (Lovenox) 30 mg SQ QD [facility] Stop: 12/04/16 17:59 Loratadine (Claritin) 10 mg PO D [facility] Miscellaneous (Memantine Hcl [Namenda]) 5 mg PO BID [facility] Miscellaneous (Esomeprazole Magnesium [Nexium]) 40 mg PO DAILY [facility] Miscellaneous (Patient Own Med) 1 each OP BID [facility] Miscellaneous (Patient Own Med) 1 each OP HS [facility] Multivitamins (Tab-A-Dana) 1 each PO DAILY [facility] Ondansetron HCl (Zofran Odt) 4 mg PO D [facility] Paroxetine HCl (Paxil) 10 mg PO DAILY [facility] Polyethylene Glycol (Miralax) 17 gm PO 1100 PRN PRN Reason: Constipation Sodium Chloride (Saline Mist) 1 spray NS NOW PRN PRN Reason: nasal dryness Sucralfate (Carafate) 1 gm PO QID [facility] Exam - Exam Vital Signs: Vital Signs (72 hours) 11/20/16 16:26 Temperature 98.3 F Pulse Rate [ 74 Right] Respiratory 16 Rate Blood Pressure 113/56 [Right Arm] O2 Sat by Pulse 98 Oximetry General: Alert, Oriented to Person, Oriented to Place, Oriented to Time, Cooperative, Mild distress HEENT: Atraumatic, PERRLA, Mouth Mucous membr. moist/Bivins, Nose Mucous membr. moist/Bivins, Edentulous, Hearing Grossly Normal. No: Pharyngeal Erythema, Tonsillar Exudate Neck: Normal Range of Motion. No: Stridor, Rigidity, Lymphadenopathy Carotids: within normal limits Thyroid: within normal limits Lungs: Normal air movement, Speaks full Sentences, Respiratory Distress (mild), Rales (fine rales bilateral) Cardiovascular: Regular rate (occasional skip beats), Normal S1, Normal S2, No murmurs. No: Gallops Abdomen: Normal bowel sounds, Soft, No tenderness, No hepatospenomegaly. No: Distended, Rigid, Hepatomegaly Integumentary: Normal, [place], Warm, Dry Extremities: No clubbing, No cyanosis, No edema Neurological: Normal gait, Normal speech, Strength Equal Bilat, Normal tone, Sensation intact, Cranial nerves 3-12 NL, Reflexes 2+ Psych/Mental Status: Mental status NL, Intact Judgment. No: Mood NL (depressed) Assessment/Plan - Assessment/Plan (1) Gait disturbance Status: Acute Assessment: patient will be started on physical and occupational therapy. Goal is for the patient to return back home. (2) Interstitial lung disease Status: Chronic Assessment: will continue with home medications. (3) Oral candidiasis Status: Acute Assessment: finish treatment (4) Pneumonia Status: Acute Qualifiers: Pneumonia type: due to unspecified organism Laterality: bilateral Lung location: lower lobe of lung Qualified Code(s): J18.9 - Pneumonia, unspecified organism Assessment: continue with current treatment VTE Assessment - RISK FACTOR SCORE VTE RISK FACTOR SCORES: AGE OVER 60 YEARS, ANTICIPATED BED CONFINEMENT OR IMMOBILIZATION > 24 HOURS - RISK VTE MODERATE RISK: SCORE OF 2 (RISK PROXIMAL DVT 2-4%) PROPHYAXIS NEEDED
[2016-11-20] MEDS: SUCRALFATE 1 GM TABLET PO SCH (20:11)
[2016-11-20] MEDS: NYSTATIN 500,000 UNIT/5 ML UDC PO SCH (20:11)
[2016-11-20] MEDS: OPTH OP SCH (20:17)
[2016-11-20] MEDS: LUMIGAN 0.01% OP SCH (20:17)
[2016-11-20] MEDS ORDERED: MEMANTINE HCL 5 MG PO SCH (21:00)
[2016-11-20] MEDS ORDERED: PATIENT OWN MED 1 EACH EACH OP SCH (21:00)
[2016-11-20] MEDS: BUDESONIDE 0.5MG/2ML AMPUL.NEB NEB SCH (21:10)
[2016-11-20] MEDS: ARFORMOTEROL TARTRATE 15 MCG/2 ML AMPUL.NEB IH SCH (21:25)
[2016-11-21] MEDS ORDERED: MEMANTINE HCL 10 MG TABLET PO ONE (04:03)
[2016-11-21 06:20] LABS: BASOPHILS % 0.1 (0.0-1.5); EOSINOPHILS % 1.6 % (0.0-6.8); LYMPHOCYTES # 2.2 # k/uL (0.6-4.0); MEAN CORPUSCULAR HEMOGLOBIN 29.8 pg (28.0-34.0); MONOCYTES # 0.4 # k/uL (0.0-0.9); MONOCYTES % 3.9 % (0.0-11.0); NEUTROPHILS # 6.4 # k/uL (1.4-7.7)
[2016-11-21 07:41] LABS: eGFR (African) > 60; eGFR (Non-African) > 60
[2016-11-21] MEDS: SUCRALFATE 1 GM TABLET PO SCH ×4 (08:22→20:20)
[2016-11-21] MEDS: LORATADINE 10 MG TABLET PO SCH (08:22)
[2016-11-21] MEDS: predniSONE 20 MG TABLET PO SCH (08:22)
[2016-11-21] MEDS: MEMANTINE HCL 10 MG TABLET PO SCH ×2 (08:23→20:21)
[2016-11-21] MEDS: NYSTATIN 500,000 UNIT/5 ML UDC PO SCH ×4 (08:24→20:20)
[2016-11-21] MEDS: ONDANSETRON HCL 4 MG TAB.RAPDIS PO SCH (08:24)
[2016-11-21] MEDS: MULTIVITAMIN 1 EACH TABLET PO SCH (08:24)
[2016-11-21] MEDS: PARoxetine HCL 10 MG TABLET PO SCH (08:24)
[2016-11-21] MEDS: OPTH OP SCH ×3 (08:30→20:21)
[2016-11-21] MEDS: PANTOPRAZOLE SODIUM 40 MG TABLET PO SCH (08:30)
[2016-11-21] MEDS: BRIMONIDINE 0.2% OP SCH ×2 (08:30→18:02)
[2016-11-21] MEDS: BUDESONIDE 0.5MG/2ML AMPUL.NEB NEB SCH ×2 (11:09→23:07)
[2016-11-21] MEDS: ARFORMOTEROL TARTRATE 15 MCG/2 ML AMPUL.NEB IH SCH ×2 (11:28→23:07)
[2016-11-21] MEDS: ENOXAPARIN SODIUM 30 MG/0.3 ML DISP.SYRIN SQ SCH (18:02)
[2016-11-21] MEDS: LUMIGAN 0.01% OP SCH (20:21)
[2016-11-22] MEDS: ONDANSETRON HCL 4 MG TAB.RAPDIS PO SCH (05:08)
[2016-11-22] MEDS: PANTOPRAZOLE SODIUM 40 MG TABLET PO SCH (05:08)
[2016-11-22] MEDS: BUDESONIDE 0.5MG/2ML AMPUL.NEB NEB SCH ×2 (09:00→21:41)
[2016-11-22] MEDS: ARFORMOTEROL TARTRATE 15 MCG/2 ML AMPUL.NEB IH SCH ×2 (09:00→21:41)
[2016-11-22] MEDS: NYSTATIN 500,000 UNIT/5 ML UDC PO SCH ×4 (09:08→20:12)
[2016-11-22] MEDS: PARoxetine HCL 10 MG TABLET PO SCH (09:08)
[2016-11-22] MEDS: MEMANTINE HCL 10 MG TABLET PO SCH ×2 (09:08→20:12)
[2016-11-22] MEDS: MULTIVITAMIN 1 EACH TABLET PO SCH (09:08)
[2016-11-22] MEDS: predniSONE 20 MG TABLET PO SCH (09:08)
[2016-11-22] MEDS: SUCRALFATE 1 GM TABLET PO SCH ×4 (09:08→20:11)
[2016-11-22] MEDS: LORATADINE 10 MG TABLET PO SCH (09:09)
[2016-11-22] MEDS: OPTH OP SCH ×3 (09:10→20:13)
[2016-11-22] MEDS: BRIMONIDINE 0.2% OP SCH ×2 (09:10→16:36)
[2016-11-22] MEDS: ENOXAPARIN SODIUM 30 MG/0.3 ML DISP.SYRIN SQ SCH (18:26)
[2016-11-22] MEDS: LUMIGAN 0.01% OP SCH (20:13)
[2016-11-22] MEDS: ACETAMINOPHEN 325 MG TABLET PO PRN (20:16)
[2016-11-23] MEDS: ONDANSETRON HCL 4 MG TAB.RAPDIS PO SCH (05:32)
[2016-11-23] MEDS: PANTOPRAZOLE SODIUM 40 MG TABLET PO SCH (05:32)
[2016-11-23] MEDS: BUDESONIDE 0.5MG/2ML AMPUL.NEB NEB SCH ×2 (09:00→21:32)
[2016-11-23] MEDS: ARFORMOTEROL TARTRATE 15 MCG/2 ML AMPUL.NEB IH SCH ×2 (09:00→21:35)
[2016-11-23] MEDS: BRIMONIDINE 0.2% OP SCH ×2 (10:00→17:31)
[2016-11-23] MEDS: MEMANTINE HCL 10 MG TABLET PO SCH ×2 (10:00→20:43)
[2016-11-23] MEDS: MULTIVITAMIN 1 EACH TABLET PO SCH (10:00)
[2016-11-23] MEDS: LORATADINE 10 MG TABLET PO SCH (10:00)
[2016-11-23] MEDS: NYSTATIN 500,000 UNIT/5 ML UDC PO SCH ×4 (10:00→20:43)
[2016-11-23] MEDS: SUCRALFATE 1 GM TABLET PO SCH ×4 (10:00→20:43)
[2016-11-23] MEDS: PARoxetine HCL 10 MG TABLET PO SCH (10:00)
[2016-11-23] MEDS: predniSONE 20 MG TABLET PO SCH (10:00)
[2016-11-23] MEDS: OPTH OP SCH ×3 (10:00→20:44)
[2016-11-23] MEDS: ENOXAPARIN SODIUM 30 MG/0.3 ML DISP.SYRIN SQ SCH (17:31)
[2016-11-23] MEDS: LUMIGAN 0.01% OP SCH (20:44)
[2016-11-24] MEDS: PANTOPRAZOLE SODIUM 40 MG TABLET PO SCH ×2 (05:28→05:29)
[2016-11-24] MEDS: ONDANSETRON HCL 4 MG TAB.RAPDIS PO SCH (05:29)
[2016-11-24] MEDS: SUCRALFATE 1 GM TABLET PO SCH ×4 (08:45→20:27)
[2016-11-24] MEDS: MEMANTINE HCL 10 MG TABLET PO SCH ×2 (08:45→20:29)
[2016-11-24] MEDS: LORATADINE 10 MG TABLET PO SCH (08:45)
[2016-11-24] MEDS: BRIMONIDINE 0.2% OP SCH ×2 (08:46→18:23)
[2016-11-24] MEDS: PARoxetine HCL 10 MG TABLET PO SCH (08:46)
[2016-11-24] MEDS: predniSONE 10 MG TABLET PO SCH (08:46)
[2016-11-24] MEDS: OPTH OP SCH ×3 (08:46→20:27)
[2016-11-24] MEDS: MULTIVITAMIN 1 EACH TABLET PO SCH (08:46)
[2016-11-24] MEDS: NYSTATIN 500,000 UNIT/5 ML UDC PO SCH ×4 (08:47→20:27)
[2016-11-24] MEDS: ARFORMOTEROL TARTRATE 15 MCG/2 ML AMPUL.NEB IH SCH ×2 (08:58→21:24)
[2016-11-24] MEDS: BUDESONIDE 0.5MG/2ML AMPUL.NEB NEB SCH ×2 (08:58→21:23)
[2016-11-24] MEDS: POLYETHYLENE GLYCOL 3350 17 GM POWD.PACK PO PRN (15:14)
[2016-11-24] MEDS: ENOXAPARIN SODIUM 30 MG/0.3 ML DISP.SYRIN SQ SCH ×2 (18:24→18:25)
[2016-11-24] MEDS: LUMIGAN 0.01% OP SCH (20:27)
[2016-11-25] MEDS: PANTOPRAZOLE SODIUM 40 MG TABLET PO SCH (06:14)
[2016-11-25] MEDS: ONDANSETRON HCL 4 MG TAB.RAPDIS PO SCH (06:14)
[2016-11-25] MEDS: ARFORMOTEROL TARTRATE 15 MCG/2 ML AMPUL.NEB IH SCH ×2 (08:53→21:03)
[2016-11-25] MEDS: BUDESONIDE 0.5MG/2ML AMPUL.NEB NEB SCH ×2 (08:53→21:03)
[2016-11-25] MEDS: SUCRALFATE 1 GM TABLET PO SCH ×4 (09:25→20:57)
[2016-11-25] MEDS: predniSONE 10 MG TABLET PO SCH (09:25)
[2016-11-25] MEDS: MEMANTINE HCL 10 MG TABLET PO SCH ×2 (09:25→20:57)
[2016-11-25] MEDS: LORATADINE 10 MG TABLET PO SCH (09:25)
[2016-11-25] MEDS: OPTH OP SCH ×3 (09:26→20:58)
[2016-11-25] MEDS: PARoxetine HCL 10 MG TABLET PO SCH (09:26)
[2016-11-25] MEDS: BRIMONIDINE 0.2% OP SCH ×2 (09:26→16:33)
[2016-11-25] MEDS: MULTIVITAMIN 1 EACH TABLET PO SCH (09:27)
[2016-11-25] MEDS: LUMIGAN 0.01% OP SCH (20:58)
[2016-11-25] MEDS: ACETAMINOPHEN 325 MG TABLET PO PRN (21:15)
[2016-11-26] MEDS: PANTOPRAZOLE SODIUM 40 MG TABLET PO SCH (05:18)
[2016-11-26] MEDS: ONDANSETRON HCL 4 MG TAB.RAPDIS PO SCH (05:18)
[2016-11-26] MEDS: OPTH OP SCH ×3 (09:19→20:05)
[2016-11-26] MEDS: MEMANTINE HCL 10 MG TABLET PO SCH ×2 (09:19→20:04)
[2016-11-26] MEDS: PARoxetine HCL 10 MG TABLET PO SCH (09:19)
[2016-11-26] MEDS: BRIMONIDINE 0.2% OP SCH ×2 (09:19→17:36)
[2016-11-26] MEDS: SUCRALFATE 1 GM TABLET PO SCH ×4 (09:20→20:04)
[2016-11-26] MEDS: LORATADINE 10 MG TABLET PO SCH (09:20)
[2016-11-26] MEDS: MULTIVITAMIN 1 EACH TABLET PO SCH (09:21)
[2016-11-26] MEDS: predniSONE 10 MG TABLET PO SCH (09:21)
[2016-11-26] MEDS: BUDESONIDE 0.5MG/2ML AMPUL.NEB NEB SCH ×2 (09:30→20:06)
[2016-11-26] MEDS: ARFORMOTEROL TARTRATE 15 MCG/2 ML AMPUL.NEB IH SCH ×2 (09:45→20:06)
--- NOTE | 2016-11-26 14:41 | Inpatient Progress Note ---
Subjective - Required Recertification Statement I anticipate X number of days because-include discharge plan: 7 days - Review of Systems Subjective: Ppatient is complaining of some mild increasing respiratory distress. Patient is afraid that her pneumonia may be returning. Patient has a mild nonproductive cough. Patient continues to have a low-grade intermittent fever. However patient has had this for some time. Patient does feel like she is making improvement with her ability to ambulate and transfer. Patient is participating well with physical and occupational therapy. General: Denies: Chills Pulmonary: Dyspnea, Cough. Denies: Pleuritic Chest Pain Cardiovascular: Denies: Chest Pain, Palpitations Gastrointestinal: Denies: Nausea, Vomiting, Abdominal Pain Neurological: Weakness (generalized) Objective - Exam Vitals and I&O: Vital Signs Temp 97.7 F 11/26/16 08:37 Pulse 92 H 11/26/16 08:37 Resp 16 11/26/16 08:37 BP 142/81 11/26/16 08:37 Pulse Ox 97 11/26/16 08:37 Intake & Output 11/25/16 11/26/16 11/26/16 23:59 11:59 23:59 Intake Total 680 240 Balance 680 240 Intake: Oral 680 240 Other: Voiding Method Toilet Toilet # Voids 1 2 # Bowel Movements 0 General: Alert, Oriented to Person, Oriented to Place, Oriented to Time, Cooperative Neck: Supple, No JVD Lungs: Normal air movement, Speaks full Sentences, Respiratory Distress (mild), Rales (fine scattered). No: Wheezes, Rhonchi Cardiovascular: Regular rate, Normal S1, Normal S2, No murmurs Abdomen: Normal bowel sounds, Soft, No tenderness, No hepatospenomegaly - Results Results: Laboratory Results WBC 9.30 K/ul (4.00-12.00) 11/21/16 06:00 RBC 4.29 M/ul (3.90-5.20) 11/21/16 06:00 Hgb 12.8 g/dL (12.0-16.0) 11/21/16 06:00 Hct 41.2 % (34.5-46.5) 11/21/16 06:00 MCV 96.0 fl (80.0-100.0) 11/21/16 06:00 MCH 29.8 pg (28.0-34.0) 11/21/16 06:00 MCHC 31.1 g/dL (30.0-36.0) 11/21/16 06:00 RDW 13.3 % (11.3-14.3) 11/21/16 06:00 Plt Count 400 K/mm3 (130-400) 11/21/16 06:00 Neut % (Auto) 69.1 % (39.0-79.0) 11/21/16 06:00 Lymph % (Auto) 24.0 % (16.0-50.0) 11/21/16 06:00 [place] % (Auto) 3.9 % (0.0-11.0) 11/21/16 06:00 Eos % (Auto) 1.6 % (0.0-6.8) 11/21/16 06:00 Baso % (Auto) 0.1 (0.0-1.5) 11/21/16 06:00 Neut # 6.4 # k/uL (1.4-7.7) 11/21/16 06:00 Lymph # 2.2 # k/uL (0.6-4.0) 11/21/16 06:00 Charles # 0.4 # k/uL (0.0-0.9) 11/21/16 06:00 Eos # 0.2 # k/uL (0.0-0.6) 11/21/16 06:00 Baso # 0.0 # k/uL (0.0-0.5) 11/21/16 06:00 Reactive Lymphs % 1.4 % (0.0-5.0) 11/21/16 06:00 Reactive Lymphs # 0.1 # k/uL (0.0-0.8) 11/21/16 06:00 Sodium 134 mmol/L (136-145) L 11/21/16 06:00 Potassium 5.1 mmol/L (3.5-5.0) H 11/21/16 06:00 Chloride 90 mmol/L (98-110) L 11/21/16 06:00 Carbon Dioxide > 40 mmol/L (20-32) H 11/21/16 06:00 BUN 13 mg/dL (10-26) 11/21/16 06:00 Creatinine 0.3 mg/dL (0.4-1.5) L 11/21/16 06:00 Estimated Creat Clear 109 11/21/16 06:00 Est GFR ( Amer) > 60 (60-) 11/21/16 06:00 Est GFR (Non-Af Amer) > 60 (60-) 11/21/16 06:00 Glucose 113 mg/dL (70-99) H 11/21/16 06:00 Calcium 9.3 mg/dL (8.5-10.5) 11/21/16 06:00 Total Bilirubin 0.3 mg/dL (0.2-1.2) 11/21/16 06:00 AST 32 U/L (0-41) 11/21/16 06:00 ALT 42 U/L (0-45) 11/21/16 06:00 Alkaline Phosphatase 89 U/L (46-116) 11/21/16 06:00 Total Protein 6.2 g/dL (6.0-8.5) 11/21/16 06:00 Albumin 3.1 g/dL (3.0-5.5) 11/21/16 06:00 Assessment/Plan - Assessment/Plan (1) Gait disturbance Status: Acute Assessment: imporved (2) Interstitial lung disease Status: Chronic Assessment: I believe patient may be having some mild mucous plugging related to her chronic lung disease: (3) Oral candidiasis Status: Acute Assessment: improved (4) Pneumonia Status: Acute Qualifiers: Pneumonia type: due to unspecified organism Laterality: bilateral Lung location: lower lobe of lung Qualified Code(s): J18.9 - Pneumonia, unspecified organism
[2016-11-26] MEDS: ENOXAPARIN SODIUM 30 MG/0.3 ML DISP.SYRIN SQ SCH (17:36)
[2016-11-26] MEDS: LUMIGAN 0.01% OP SCH (20:05)
[2016-11-27] MEDS: PANTOPRAZOLE SODIUM 40 MG TABLET PO SCH (05:45)
[2016-11-27] MEDS: ONDANSETRON HCL 4 MG TAB.RAPDIS PO SCH (05:46)
[2016-11-27] MEDS: SUCRALFATE 1 GM TABLET PO SCH ×4 (08:55→21:18)
[2016-11-27] MEDS: LORATADINE 10 MG TABLET PO SCH (08:55)
[2016-11-27] MEDS: predniSONE 10 MG TABLET PO SCH (08:56)
[2016-11-27] MEDS: MEMANTINE HCL 10 MG TABLET PO SCH ×2 (08:57→21:18)
[2016-11-27] MEDS: OPTH OP SCH ×3 (08:57→21:24)
[2016-11-27] MEDS: PARoxetine HCL 10 MG TABLET PO SCH (08:57)
[2016-11-27] MEDS: BRIMONIDINE 0.2% OP SCH ×2 (08:57→18:38)
[2016-11-27] MEDS: MULTIVITAMIN 1 EACH TABLET PO SCH (08:57)
[2016-11-27] MEDS: BUDESONIDE 0.5MG/2ML AMPUL.NEB NEB SCH ×2 (09:15→20:45)
[2016-11-27] MEDS: ARFORMOTEROL TARTRATE 15 MCG/2 ML AMPUL.NEB IH SCH ×2 (09:40→20:45)
[2016-11-27] MEDS: POLYETHYLENE GLYCOL 3350 17 GM POWD.PACK PO PRN (14:29)
[2016-11-27] MEDS: ENOXAPARIN SODIUM 30 MG/0.3 ML DISP.SYRIN SQ SCH (18:37)
[2016-11-27] MEDS: LUMIGAN 0.01% OP SCH (21:24)
[2016-11-28] MEDS: PANTOPRAZOLE SODIUM 40 MG TABLET PO SCH (05:22)
[2016-11-28] MEDS: ONDANSETRON HCL 4 MG TAB.RAPDIS PO SCH (05:22)
[2016-11-28] MEDS: LORATADINE 10 MG TABLET PO SCH (08:48)
[2016-11-28] MEDS: predniSONE 10 MG TABLET PO SCH (08:48)
[2016-11-28] MEDS: SUCRALFATE 1 GM TABLET PO SCH ×4 (08:48→20:16)
[2016-11-28] MEDS: MEMANTINE HCL 10 MG TABLET PO SCH ×2 (08:49→20:17)
[2016-11-28] MEDS: PARoxetine HCL 10 MG TABLET PO SCH (08:50)
[2016-11-28] MEDS: OPTH OP SCH ×3 (08:50→20:17)
[2016-11-28] MEDS: BRIMONIDINE 0.2% OP SCH ×2 (08:50→18:30)
[2016-11-28] MEDS: MULTIVITAMIN 1 EACH TABLET PO SCH (08:50)
[2016-11-28] MEDS: BUDESONIDE 0.5MG/2ML AMPUL.NEB NEB SCH ×2 (09:09→23:07)
[2016-11-28] MEDS: ARFORMOTEROL TARTRATE 15 MCG/2 ML AMPUL.NEB IH SCH ×2 (09:12→23:07)
[2016-11-28] MEDS: POLYETHYLENE GLYCOL 3350 17 GM POWD.PACK PO PRN (14:59)
[2016-11-28] MEDS: ENOXAPARIN SODIUM 30 MG/0.3 ML DISP.SYRIN SQ SCH (18:30)
[2016-11-28] MEDS: LUMIGAN 0.01% OP SCH (20:17)
[2016-11-29] MEDS: ONDANSETRON HCL 4 MG TAB.RAPDIS PO SCH (05:43)
[2016-11-29] MEDS: PANTOPRAZOLE SODIUM 40 MG TABLET PO SCH (05:44)
[2016-11-29] MEDS: SUCRALFATE 1 GM TABLET PO SCH ×4 (08:15→20:09)
[2016-11-29] MEDS: LORATADINE 10 MG TABLET PO SCH (08:15)
[2016-11-29] MEDS: predniSONE 10 MG TABLET PO SCH (08:15)
[2016-11-29] MEDS: PARoxetine HCL 10 MG TABLET PO SCH (08:16)
[2016-11-29] MEDS: MEMANTINE HCL 10 MG TABLET PO SCH ×2 (08:16→20:08)
[2016-11-29] MEDS: OPTH OP SCH ×3 (08:16→20:11)
[2016-11-29] MEDS: BRIMONIDINE 0.2% OP SCH ×2 (08:16→17:38)
[2016-11-29] MEDS: MULTIVITAMIN 1 EACH TABLET PO SCH (08:17)
[2016-11-29] MEDS: BUDESONIDE 0.5MG/2ML AMPUL.NEB NEB SCH ×2 (10:11→20:40)
[2016-11-29] MEDS: ARFORMOTEROL TARTRATE 15 MCG/2 ML AMPUL.NEB IH SCH ×2 (10:14→23:31)
[2016-11-29] MEDS: ENOXAPARIN SODIUM 30 MG/0.3 ML DISP.SYRIN SQ SCH (17:38)
[2016-11-29] MEDS: LUMIGAN 0.01% OP SCH (20:11)
[2016-11-30] MEDS: PANTOPRAZOLE SODIUM 40 MG TABLET PO SCH (05:36)
[2016-11-30] MEDS: ONDANSETRON HCL 4 MG TAB.RAPDIS PO SCH (05:36)
[2016-11-30] MEDS: BUDESONIDE 0.5MG/2ML AMPUL.NEB NEB SCH ×2 (09:25→21:28)
[2016-11-30] MEDS: ARFORMOTEROL TARTRATE 15 MCG/2 ML AMPUL.NEB IH SCH ×2 (09:30→21:28)
[2016-11-30] MEDS: POLYETHYLENE GLYCOL 3350 17 GM POWD.PACK PO PRN (09:40)
[2016-11-30] MEDS: SUCRALFATE 1 GM TABLET PO SCH ×4 (10:08→20:30)
[2016-11-30] MEDS: MEMANTINE HCL 10 MG TABLET PO SCH ×2 (10:08→20:28)
[2016-11-30] MEDS: LORATADINE 10 MG TABLET PO SCH (10:08)
[2016-11-30] MEDS: MULTIVITAMIN 1 EACH TABLET PO SCH (10:10)
[2016-11-30] MEDS: OPTH OP SCH ×3 (10:10→20:28)
[2016-11-30] MEDS: PARoxetine HCL 10 MG TABLET PO SCH (10:10)
[2016-11-30] MEDS: BRIMONIDINE 0.2% OP SCH ×2 (10:10→18:05)
[2016-11-30] MEDS: ENOXAPARIN SODIUM 30 MG/0.3 ML DISP.SYRIN SQ SCH (18:05)
[2016-11-30] MEDS: LUMIGAN 0.01% OP SCH (20:28)
[2016-12-01] MEDS: ONDANSETRON HCL 4 MG TAB.RAPDIS PO SCH (05:23)
[2016-12-01] MEDS: PANTOPRAZOLE SODIUM 40 MG TABLET PO SCH (05:23)
[2016-12-01] MEDS: SUCRALFATE 1 GM TABLET PO SCH ×4 (08:29→20:49)
[2016-12-01] MEDS: MULTIVITAMIN 1 EACH TABLET PO SCH (08:29)
[2016-12-01] MEDS: LORATADINE 10 MG TABLET PO SCH (08:29)
[2016-12-01] MEDS: PARoxetine HCL 10 MG TABLET PO SCH (08:29)
[2016-12-01] MEDS: MEMANTINE HCL 10 MG TABLET PO SCH ×2 (08:29→20:49)
[2016-12-01] MEDS: BRIMONIDINE 0.2% OP SCH ×2 (08:30→18:14)
[2016-12-01] MEDS: OPTH OP SCH ×3 (08:30→20:50)
[2016-12-01] MEDS: ACETAMINOPHEN 325 MG TABLET PO PRN (08:32)
[2016-12-01] MEDS: BUDESONIDE 0.5MG/2ML AMPUL.NEB NEB SCH ×2 (09:18→23:13)
[2016-12-01] MEDS: ARFORMOTEROL TARTRATE 15 MCG/2 ML AMPUL.NEB IH SCH ×2 (09:20→23:13)
--- NOTE | 2016-12-01 09:57 | Inpatient Progress Note ---
Subjective - Required Recertification Statement I anticipate X number of days because-include discharge plan: 10 days - Review of Systems Events since last encounter: Patient is complaining of some pain in the LUQ abd area over the last 2 days. No precipitating or modifying factors noted. No change with movement, exertion, eating, drinking or breathing. No nausea or vomiting associated with it. Patient states that it feels like when she had pneumonia. General: Denies: Chills Cardiovascular: Denies: Chest Pain, Palpitations Gastrointestinal: Abdominal Pain. Denies: Nausea, Vomiting, Diarrhea, Constipation (last BM yesterday), Melena, Hematochezia Objective - Exam Vitals and I&O: Vital Signs Temp 97.1 F L 11/30/16 21:00 Pulse 94 H 11/30/16 21:00 Resp 18 11/30/16 21:00 BP 100/67 11/30/16 21:00 Pulse Ox 98 11/30/16 21:00 Intake & Output 11/30/16 11/30/16 12/01/16 11:59 23:59 11:59 Intake Total 480 1080 240 Balance 480 1080 240 Weight 35.834 kg Intake: Oral 480 1080 240 Other: Voiding Method Toilet Toilet General: Alert, Oriented to Person, Oriented to Place, Oriented to Time, Cooperative HEENT: Atraumatic Neck: Supple, No JVD Lungs: Clear to auscultation, Normal air movement, Speaks full Sentences, Respiratory Distress. No: Wheezes, Rales, Rhonchi Cardiovascular: Regular rate, Normal S1, Normal S2, No murmurs Abdomen: Soft, Other (tender to palpation over the LUQ area, no guarding or rebound tenderness. ), Decreased Bowel Sounds. No: Distended Skin: Normal, [place] Neurological: Normal gait, Strength Equal Bilat - Results Results: Laboratory Results WBC 9.30 K/ul (4.00-12.00) 11/21/16 06:00 RBC 4.29 M/ul (3.90-5.20) 11/21/16 06:00 Hgb 12.8 g/dL (12.0-16.0) 11/21/16 06:00 Hct 41.2 % (34.5-46.5) 11/21/16 06:00 MCV 96.0 fl (80.0-100.0) 11/21/16 06:00 MCH 29.8 pg (28.0-34.0) 11/21/16 06:00 MCHC 31.1 g/dL (30.0-36.0) 11/21/16 06:00 RDW 13.3 % (11.3-14.3) 11/21/16 06:00 Plt Count 400 K/mm3 (130-400) 11/21/16 06:00 Neut % (Auto) 69.1 % (39.0-79.0) 11/21/16 06:00 Lymph % (Auto) 24.0 % (16.0-50.0) 11/21/16 06:00 [place] % (Auto) 3.9 % (0.0-11.0) 11/21/16 06:00 Eos % (Auto) 1.6 % (0.0-6.8) 11/21/16 06:00 Baso % (Auto) 0.1 (0.0-1.5) 11/21/16 06:00 Neut # 6.4 # k/uL (1.4-7.7) 11/21/16 06:00 Lymph # 2.2 # k/uL (0.6-4.0) 11/21/16 06:00 [place] # 0.4 # k/uL (0.0-0.9) 11/21/16 06:00 Eos # 0.2 # k/uL (0.0-0.6) 11/21/16 06:00 Baso # 0.0 # k/uL (0.0-0.5) 11/21/16 06:00 Reactive Lymphs % 1.4 % (0.0-5.0) 11/21/16 06:00 Reactive Lymphs # 0.1 # k/uL (0.0-0.8) 11/21/16 06:00 Sodium 134 mmol/L (136-145) L 11/21/16 06:00 Potassium 5.1 mmol/L (3.5-5.0) H 11/21/16 06:00 Chloride 90 mmol/L (98-110) L 11/21/16 06:00 Carbon Dioxide > 40 mmol/L (20-32) H 11/21/16 06:00 BUN 13 mg/dL (10-26) 11/21/16 06:00 Creatinine 0.3 mg/dL (0.4-1.5) L 11/21/16 06:00 Estimated Creat Clear 109 11/21/16 06:00 Est GFR ( Amer) > 60 (60-) 11/21/16 06:00 Est GFR (Non-Af Amer) > 60 (60-) 11/21/16 06:00 Glucose 113 mg/dL (70-99) H 11/21/16 06:00 Calcium 9.3 mg/dL (8.5-10.5) 11/21/16 06:00 Total Bilirubin 0.3 mg/dL (0.2-1.2) 11/21/16 06:00 AST 32 U/L (0-41) 11/21/16 06:00 ALT 42 U/L (0-45) 11/21/16 06:00 Alkaline Phosphatase 89 U/L (46-116) 11/21/16 06:00 Total Protein 6.2 g/dL (6.0-8.5) 11/21/16 06:00 Albumin 3.1 g/dL (3.0-5.5) 11/21/16 06:00 Assessment/Plan - Assessment/Plan (1) Gait disturbance Status: Acute Current Visit: Yes Assessment: stable to improving (2) Interstitial lung disease Status: Chronic Current Visit: No Assessment: stable (3) LUQ abdominal pain Status: Acute Current Visit: Yes Assessment: will get chest x-ray, traponin, increase protonix to BID
[2016-12-01 10:39] LABS: BASOPHILS % 0.2 (0.0-1.5); EOSINOPHILS % 1.2 % (0.0-6.8); MEAN CORPUSCULAR HEMOGLOBIN 30.6 pg (28.0-34.0); MONOCYTES # 0.5 # k/uL (0.0-0.9); MONOCYTES % 4.9 % (0.0-11.0); NEUTROPHILS # 8.3 # k/uL (1.4-7.7)
--- NOTE | 2016-12-01 11:28 | Diagnostic Imaging Report ---
[facility] [id number] [facility] [address] [address] Report Submission Date: Dec 01, 2016 11:05:44 AM PROJECT ASSOCIATE Patient Study Name: ALEXANDRO MONROY Date: Dec 01, 2016 10:14:21 AM PROJECT ASSOCIATE Modality Type: CR Gender: F Description: CHEST : 37 Institution: [facility] Physician [facility] Chest two views HISTORY: Left-sided chest pain FINDINGS: Extensive bilateral pulmonary infiltrates and nodules are observed. There is marked left apical capping and marked right upper lobe volume loss. The lungs are hyperinflated. There is no evidence of pneumothorax. Small pleural effusions cannot be excluded. Infiltrates have slightly improved since 2016. IMPRESSION: Slightly decreased bilateral pulmonary infiltrates since 11/11/2016. Otherwise no significant change. Electronically signed on Dec 01, 2016 11:05:44 AM PROJECT ASSOCIATE by: José SALDAÑA
[2016-12-01] MEDS: ENOXAPARIN SODIUM 30 MG/0.3 ML DISP.SYRIN SQ SCH (18:14)
[2016-12-01] MEDS: LUMIGAN 0.01% OP SCH (20:50)
[2016-12-02] MEDS: ONDANSETRON HCL 4 MG TAB.RAPDIS PO SCH (06:38)
[2016-12-02] MEDS: PANTOPRAZOLE SODIUM 40 MG TABLET PO SCH (06:38)
[2016-12-02] MEDS: SUCRALFATE 1 GM TABLET PO SCH ×4 (08:09→20:38)
[2016-12-02] MEDS: PARoxetine HCL 10 MG TABLET PO SCH (08:09)
[2016-12-02] MEDS: MEMANTINE HCL 10 MG TABLET PO SCH ×2 (08:09→17:44)
[2016-12-02] MEDS: MULTIVITAMIN 1 EACH TABLET PO SCH (08:10)
[2016-12-02] MEDS: BRIMONIDINE 0.2% OP SCH ×2 (08:10→17:00)
[2016-12-02] MEDS: OPTH OP SCH ×3 (08:10→20:38)
[2016-12-02] MEDS: LORATADINE 10 MG TABLET PO SCH (08:10)
[2016-12-02] MEDS: ARFORMOTEROL TARTRATE 15 MCG/2 ML AMPUL.NEB IH SCH ×2 (09:26→20:39)
[2016-12-02] MEDS: BUDESONIDE 0.5MG/2ML AMPUL.NEB NEB SCH ×2 (09:27→20:39)
[2016-12-02] MEDS: ENOXAPARIN SODIUM 30 MG/0.3 ML DISP.SYRIN SQ SCH (17:44)
[2016-12-02] MEDS: LUMIGAN 0.01% OP SCH (20:38)
[2016-12-03] MEDS: PANTOPRAZOLE SODIUM 40 MG TABLET PO SCH ×2 (06:19→14:11)
[2016-12-03] MEDS: ONDANSETRON HCL 4 MG TAB.RAPDIS PO SCH (06:19)
[2016-12-03] MEDS: MEMANTINE HCL 10 MG TABLET PO SCH ×2 (08:43→20:32)
[2016-12-03] MEDS: PARoxetine HCL 10 MG TABLET PO SCH (08:43)
[2016-12-03] MEDS: BRIMONIDINE 0.2% OP SCH ×2 (08:44→18:28)
[2016-12-03] MEDS: OPTH OP SCH ×3 (08:44→20:35)
[2016-12-03] MEDS: LORATADINE 10 MG TABLET PO SCH (08:44)
[2016-12-03] MEDS: SUCRALFATE 1 GM TABLET PO SCH ×4 (08:44→20:31)
[2016-12-03] MEDS: MULTIVITAMIN 1 EACH TABLET PO SCH (08:44)
[2016-12-03] MEDS: BUDESONIDE 0.5MG/2ML AMPUL.NEB NEB SCH ×2 (08:51→22:06)
[2016-12-03] MEDS: ARFORMOTEROL TARTRATE 15 MCG/2 ML AMPUL.NEB IH SCH ×2 (08:58→22:06)
[2016-12-03] MEDS: POLYETHYLENE GLYCOL 3350 17 GM POWD.PACK PO PRN (10:57)
[2016-12-03] MEDS: ENOXAPARIN SODIUM 30 MG/0.3 ML DISP.SYRIN SQ SCH (18:28)
[2016-12-03] MEDS: LUMIGAN 0.01% OP SCH (20:35)
[2016-12-04] MEDS: PANTOPRAZOLE SODIUM 40 MG TABLET PO SCH ×2 (06:14→14:17)
[2016-12-04] MEDS: ONDANSETRON HCL 4 MG TAB.RAPDIS PO SCH (06:14)
[2016-12-04] MEDS: MEMANTINE HCL 10 MG TABLET PO SCH ×2 (08:26→21:58)
[2016-12-04] MEDS: PARoxetine HCL 10 MG TABLET PO SCH (08:26)
[2016-12-04] MEDS: SUCRALFATE 1 GM TABLET PO SCH ×4 (08:26→21:58)
[2016-12-04] MEDS: LORATADINE 10 MG TABLET PO SCH (08:27)
[2016-12-04] MEDS: BRIMONIDINE 0.2% OP SCH ×2 (08:28→19:15)
[2016-12-04] MEDS: OPTH OP SCH ×3 (08:28→21:58)
[2016-12-04] MEDS: MULTIVITAMIN 1 EACH TABLET PO SCH (08:28)
[2016-12-04] MEDS: ARFORMOTEROL TARTRATE 15 MCG/2 ML AMPUL.NEB IH SCH ×2 (09:23→23:03)
[2016-12-04] MEDS: BUDESONIDE 0.5MG/2ML AMPUL.NEB NEB SCH ×2 (09:27→23:03)
[2016-12-04 11:04] LABS: BASOPHILS % 0.3 (0.0-1.5); EOSINOPHILS % 2.9 % (0.0-6.8); MEAN CORPUSCULAR HEMOGLOBIN 30.2 pg (28.0-34.0); MONOCYTES # 0.3 # k/uL (0.0-0.9); MONOCYTES % 5.4 % (0.0-11.0); NEUTROPHILS # 4.4 # k/uL (1.4-7.7)
[2016-12-04 11:31] LABS: eGFR (African) > 60; eGFR (Non-African) > 60
[2016-12-04] MEDS: LUMIGAN 0.01% OP SCH (21:58)
[2016-12-05] MEDS: ONDANSETRON HCL 4 MG TAB.RAPDIS PO SCH (06:07)
[2016-12-05] MEDS: PANTOPRAZOLE SODIUM 40 MG TABLET PO SCH (06:07)
[2016-12-05] MEDS: OPTH OP SCH (08:07)
[2016-12-05] MEDS: MEMANTINE HCL 10 MG TABLET PO SCH (08:07)
[2016-12-05] MEDS: BRIMONIDINE 0.2% OP SCH (08:07)
[2016-12-05] MEDS: LORATADINE 10 MG TABLET PO SCH (08:08)
[2016-12-05] MEDS: PARoxetine HCL 10 MG TABLET PO SCH (08:09)
[2016-12-05] MEDS: MULTIVITAMIN 1 EACH TABLET PO SCH (08:09)
[2016-12-05] MEDS: SUCRALFATE 1 GM TABLET PO SCH (08:09)
--- NOTE | 2016-12-05 08:59 | Discharge Summary ---
Discharge Summary - Discharge Sumary History of Present Illness: 81-yo white female who was recently admitted to the hospital with pneumonia. Patient breathing status continued to deteriorate. Patient was subsequently transferred to [facility]. At [facility] patient was admitted to the ICU. Patient was found to have a pneumonia along with congestive heart failure. Patient was treated with IV Lasix and IV antibiotic therapy. Patient was given high flow nebulization treatments. 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 Patient was treated with IV antibiotic therapy and high flow nebulization treatments. Patient was also given IV Lasix for her congestive heart failure.. Patient became weak and her ability to ambulate was compromised. It was felt that the patient would benefit from further skilled services was subsequently admitted to this institution for further physical therapy, occupational therapy. Discharge patient was advised to consider possible hospice care. Patient does not want to do that at this time.d At the time of discharge patient was advise to consider Hospice care but patient did not want to pursue that at this time. Condition at Discharge: Stable Home Medications: Ambulatory Orders Medication Instructions Recorded Loratadine [Claritin] 10 mg PO D 05/24/15 Multivitamin [Tab-A-Dana] 1 each PO DAILY 05/24/15 Polyethylene Glycol 3350 [Miralax] 17 gm PO 1100 05/24/15 Albuterol Sulfate [Ventolin HFN] 2.5 mg NEB Q4 PRN #0 ampul.neb 05/29/15 Arformoterol Tartrate [Brovana] 15 mcg NEB DAILY ampul.neb 05/29/15 Budesonide [Pulmicort] 0.5 mg NEB BID ampul.neb 05/29/15 Acetaminophen [Tylenol Extra 650 mg PO Q4 PRN 12/20/15 Strength] Ipratropium/Albuterol Sulfate 3 ml NEB Q6 ampul.neb 11/11/16 [Duoneb] Consultations this Visit: None Procedures this Visit: None Allergies/Adverse Reactions: Allergies Allergy/AdvReac Type Severity Reaction Status Date / Time No Known Drug Allergies Allergy Verified 07/10/15 14:11 sulfamethoxazole AdvReac Nausea/Vomi Verified 11/09/16 13:11 [From Bactrim] ting trimethoprim [From Bactrim] AdvReac Nausea/Vomi Verified 11/09/16 13:11 ting Discharge Summary: patient presented well with physical and occupational therapy. Patient did make improvement with her ability to ambulate and transfer safely. Patient continued to have intermittent low-grade fever. Patient hasn't done this for a number of months. [place] to be related to her chronic lung disease. Patient did have chest x-ray which did show which some improvement in her pulmonary infiltrate. at this time. I did spend some time talking to the patient about her chronic pulmonary illness. Patient is aware that it will probably not improved. Patient was placed DNR. It was felt that patient could not manage her daily living cares at home by herself. Patient was subsequently transferred to [facility] for further rehabilitation services and rehabilitation. - Final Diagnosis (1) Gait disturbance Problems: improved (2) Interstitial lung disease Problems: stable (3) LUQ abdominal pain Problems: resolved
[2016-12-05] MEDS: BUDESONIDE 0.5MG/2ML AMPUL.NEB NEB SCH (09:28)
[2016-12-05] MEDS: ARFORMOTEROL TARTRATE 15 MCG/2 ML AMPUL.NEB IH SCH (09:43)
[2016-12-05 09:47] VITALS: BP 95/60
== END 2016-12-05 10:37 | DRG 91 ==
LOC: SOUTH 15:00
PROVIDERS: ADMIT Family Medicine; ATTEND Family Medicine
DX: R26.89 Other abnormalities of gait and mobility (principal); J84.9 Interstitial pulmonary disease, unspecified; J18.9 Pneumonia, unspecified organism; J44.9 Chronic obstructive pulmonary disease, unspecified; B37.0 Candidal stomatitis
CPT/HCPCS: 36415; 71020; 80048; 80053; 84484; 85025; 94640; 94760; J1650; J7626; A9270; J7512

== ENCOUNTER 2016-12-25 19:02 | Emergency (ER) | payer MEDICARE, OTHER ==
--- NOTE | 2016-12-25 20:05 | ED Physician Documentation ---
Dyspnea - HISTORIAN Historian: patient, child - HPI Stated Complaint: Not feeling well Chief Complaint: Dyspnea Additional Information: nh pt sob cough yellow sputum prod ch fibrosis recent chf pneumonia. pt living at home active until nov 11 dev 'double pneumonia' fluid over load pulm fibrosis. in [facility] for intensive care. since has been in [facility] on ch o2 not felt well since-sig wkorse past 2-4 days Onset: days ago (7-`10) Duration: continues in ED, worse Initiating Event: upper respiratory illness. denies: out of meds, aspiration, choking, exposure to smoke, exposure to mold Severity: moderate Exacerbated By: change in position, exertion, laying flat, coughing Associated Symptoms: chills, fever, chest discomfort, productive cough Further Comments: yes (recent leg edema-none now) - ROS CONST: recent illness, weakness GI/: none NEURO/PSYCH: other (alert oriented renaood historian weak w/exab sob just talking but spo2 = 98 2 lpm o2). denies: headache MS/SKIN/LYMPH: denies: neck pain, muscle aches, rash - PAST HX Lung Disease: asthma (pulm fibrsosis aspergillosis-never smoked), COPD Cardiac Disease: none (apparent normal echo at [place]-ct chest revealed fibrosis fluid overload when [facility]) PE Risk Factors: other (prev pe) Other History: other (pulm fibrosis dysphagia gherd constipation ckopd pe djd osteoporosis/copod aspergillosis) Allergies/Adverse Reactions: Allergies Allergy/AdvReac Type Severity Reaction Status Date / Time sulfamethoxazole AdvReac Nausea/Vomi Verified 12/25/16 19:20 [From Bactrim] ting trimethoprim [From Bactrim] AdvReac Nausea/Vomi Verified 12/25/16 19:20 ting Home Medications: Ambulatory Orders Medication Instructions Recorded Loratadine [Claritin] 10 mg PO D 05/24/15 Multivitamin [Tab-A-Dana] 1 each PO DAILY 05/24/15 Polyethylene Glycol 3350 [Miralax] 17 gm PO 1100 05/24/15 Albuterol Sulfate [Ventolin HFN] 2.5 mg NEB Q4 PRN #0 ampul.neb 05/29/15 Arformoterol Tartrate [Brovana] 15 mcg NEB DAILY ampul.neb 05/29/15 Budesonide [Pulmicort] 0.5 mg NEB BID ampul.neb 05/29/15 Acetaminophen [Tylenol Extra 650 mg PO Q4 PRN 12/20/15 Strength] Ipratropium/Albuterol Sulfate 3 ml NEB Q6 ampul.neb 11/11/16 [Duoneb] - SOCIAL HX Smoking History: non-smoker Alcohol Use: none Drug Use: none - FAMILY HX Family History: no significant history - VITAL SIGNS Vital Signs: Vital Signs Temp Pulse Resp BP Pulse Ox 98.8 F 81 16 153/80 94 12/25/16 19:13 12/25/16 19:13 12/25/16 19:13 12/25/16 19:13 12/25/16 19:13 - REVIEWED ASSESSMENTS Nursing Assessment Reviewed: Yes Vitals Reviewed: Yes ED Results Lab/Radiology - Orders Orders: ED Orders Category Date Time Status Assess pulse oximetry Q1H Care 12/25/16 20:[address] Saline Lock/IV Now Care 12/25/16 20:[address] CHEST W/ CONTRAST Stat Exams 12/25/16 Ordered ARTERIAL BLOOD GAS Stat Lab 12/25/16 Uncollected CBC/PLATELET/DIFF Routine Lab 12/25/16 Ordered CMP Routine Lab 12/25/16 Ordered PT-INR Routine Lab 12/25/16 Ordered Oxygen Daily Oxygen 12/25/16 20:00 Ordered EKG WITH COMPARISON Stat Ther 12/25/16 Ordered Dyspnea Physical Exam - EXAM General Appearance: moderate distress, lethargic, hyperventilating EENT: eye inspection normal Neck: nml inspection (poss jvd - [place] carotid pulsation) Respiratory: respiratory distress, decreased air movement. No: no resp. distress, breath sounds nml, speaks full sentences, prolonged expirations CVS: reg. rate & rhythm Abdomen: non-tender, no distention Skin: color nml. No: no rash, cyanosis, diaphoresis, pallor, ecchymosis Extremities: non-tender, normal range of motion, no edema Neuro/Psych: oriented x3, motor nml, sensation nml, weakness, speech abnml, depressed mood/affect Discharge Clincal Impression: Acute respiratory distress, Pleural effusion, acid base imbalance, Pulmonary fibrosis, Pulmonary embolism, Interstitial lung disease Home Medications: Ambulatory Orders Loratadine [Claritin] 10 mg PO D 05/24/15 Multivitamin [Tab-A-Dana] 1 each PO DAILY 05/24/15 Polyethylene Glycol 3350 [Miralax] 17 gm PO 1100 05/24/15 Albuterol Sulfate [Ventolin HFN] 2.5 mg NEB Q4 PRN #0 ampul.neb 05/29/15 Arformoterol Tartrate [Brovana] 15 mcg NEB DAILY ampul.neb 05/29/15 Budesonide [Pulmicort] 0.5 mg NEB BID ampul.neb 05/29/15 Acetaminophen [Tylenol Extra Strength] 650 mg PO Q4 PRN 12/20/15 Ipratropium/Albuterol Sulfate [Duoneb] 3 ml NEB Q6 ampul.neb 11/11/16 Comments: disc ckond w/pt family/dr jodie haji tnsf via ambulance Condition: Good Disposition: 02 XFER [facility] HOSP Decision to Admit: [id number] Decision Time: 23:23
[2016-12-25 20:52] LABS: BASOPHILS % 0.2 (0.0-1.5); EOSINOPHILS % 0.3 % (0.0-6.8); MEAN CORPUSCULAR HEMOGLOBIN 28.9 pg (28.0-34.0); MONOCYTES # 0.4 # k/uL (0.0-0.9); MONOCYTES % 2.7 % (0.0-11.0)
[2016-12-25 21:04] LABS: eGFR (African) > 60; eGFR (Non-African) > 60
[2016-12-25] MEDS ORDERED: 0.9 % SODIUM CHLORIDE 1,000 ML IV ONE (23:24)
[2016-12-25] MEDS: 0.9 % SODIUM CHLORIDE 1,000 ML IV SCH (23:41)
[2016-12-26 00:38] VITALS: BP 138/74
--- NOTE | 2016-12-26 07:10 | Diagnostic Imaging Report ---
EILEEN SALAZAR [facility] [address] [facility] [address] [place], [place]. [address] Report Submission Date: Dec 25, 2016 10:05:22 PM FOOD AND NUTRITION PROFESSOR Patient Study Name: ALEXANDRO MNOROY Date: Dec 25, 2016 9:20:35 PM FOOD AND NUTRITION PROFESSOR Modality Type: CT\SR Gender: F Description: CT CHEST W/ CONTRAST : 37 Institution: [facility] Physician: EILEEN SLAAZAR CT chest with contrast Date of study: December 25, 2016. CLINICAL HISTORY: PT STATES WEAKNESS STARTING TODAY, SOB, PRODUCTIVE COUGH YELLOW COLOR (Hx) / SOB, YELLOW SPUTUM (DICOM Hx) TECHNIQUE: 3 mm contiguous axial images of the chest with contrast. Sagittal and coronal reconstructions. FINDINGS: Bilateral apical lung bulla are present. There are chronic emphysematous lung parenchymal changes with bilateral pleural effusions, greater on the right than left. There are scattered areas of bilateral pleural based thickening and scarring with bilateral lower lobe areas of bronchiectasis, peribronchial thickening and scattered lung parenchymal opacities. The cardiac and mediastinal vascular structures enhance appropriately. The bilateral pulmonary arteries are dilated consistent with chronic pulmonary hypertension. There is no evidence of pulmonary artery filling defect to suggest pulmonary embolism. The mediastinal contents are within normal limits. A right hepatic lobe cyst is noted. The visualized portions of the pancreas and spleen are unremarkable. The kidneys enhance appropriately. IMPRESSION: Bilateral pleural effusions. Chronic emphysematous lung parenchymal changes, bilateral lung bulla and scattered lung parenchymal opacities. Dilated pulmonary arteries consistent with pulmonary hypertension. Electronically signed on Dec 25, 2016 10:05:22 PM FOOD AND NUTRITION PROFESSOR by: Rishi SALDAÑA
[2016-12-26 07:39] LABS: ABG PH 7.55 (7.35-7.45)
== END 2016-12-26 00:10 | disposition short-term general hospital (02) ==
LOC: ED 19:02
DX: J98.9 Respiratory disorder, unspecified (principal)
CPT/HCPCS: 36600; 71260; 80053; 82803; 85025; 85610; 93005; J7030; Q9966; 96360; 96361; 99283; 99284; S1016

== ENCOUNTER 2017-02-03 15:25 | Outpatient (CLI) | payer MEDICARE, OTHER | END 2017-02-03 15:26 | LOC: RAD 15:25 | PROVIDERS: ATTEND Internal Medicine Gastroenterology | DX: R13.14 Dysphagia, pharyngoesophageal phase (principal); K22.8 Other specified diseases of esophagus | CPT/HCPCS: 74230 ==